=== PATIENT | female | born 1960 | race Hispanic/Latino ===

== ENCOUNTER → 2018-08-12 | Outpatient (CLI) | payer BC ==
--- NOTE | 2018-08-12 11:53 | Diagnostic Imaging Report ---
EXAM: US ABDOMEN COMPLETE DATE: 08/12/2018 10:45 AM Time stamp on exam: INDICATION: Abdominal pain COMPARISON: None TECHNIQUE: Transverse and longitudinal jones scale and color doppler sonographic images of the upper abdomen were obtained. FINDINGS: LIVER 16.3 cm in the right midclavicular line. Normal echogenicity, normal contour, no masses. SPLEEN 9.2 cm in maximum diameter. Normal echogenicity, no masses. GALLBLADDER No stones, sludge, wall-thickening or pericholecystic fluid. Negative sonographic Galarza's sign. BILE DUCTS No intra nor extra-hepatic biliary dilation. Common bile duct measures 0.3 cm PANCREAS: Visualized portions are normal. RIGHT KIDNEY: 10.7 cm Echogenicity: Normal Collecting System: No hydronephrosis Stones: None Cyst/Mass: None LEFT KIDNEY: 10.4 cm Echogenicity: Normal Collecting System: No hydronephrosis Stones: None Cyst/Mass: None VESSELS: Aorta: Nonaneurysmal Inferior Vena Cava: Patent Main Portal Vein: 1.1 cm, normal size with hepatopetal flow. FREE FLUID: None IMPRESSION: Unremarkable abdominal ultrasound. Signed by: Dr. Juliano Jerez M.D. on 08/12/2018 11:50 AM
== END ==
LOC: US 10:36
PROVIDERS: ATTEND Internal Medicine Gastroenterology
DX: R10.13 Epigastric pain (principal); R11.2 Nausea with vomiting, unspecified; I10 Essential (primary) hypertension; E66.3 Overweight; Z71.3 Dietary counseling and surveillance
CPT/HCPCS: 76700